=== PATIENT | female | born 1990 | race African-American/Black ===

== ENCOUNTER 2021-06-03 19:06 | Inpatient (IN) ==
[2021-06-03] MEDS ORDERED: HYDROmorphone 1 MG/1 ML SYRINGE IV STA ×2 (20:19→23:36)
[2021-06-03] MEDS ORDERED: SODIUM CHLORIDE 0.9% 1,000 ML IV STA ×2 (20:19→21:07)
[2021-06-03] MEDS ORDERED: ONDANSETRON 4 MG/2 ML VIAL IV STA (20:19)
[2021-06-03 20:44] LABS: Basophils % 0.2 % (0.0-0.8); Hematocrit 32.2 VOL% (35.7-47.0); Hemoglobin 9.7 GM/DL (12.0-16.0); Immature Granulocytes % 0.3 %; Immature Granulocytes Absolute 0.03 #; Lymphocytes # 0.4 10*3/uL (1.4-4.0); Lymphocytes % 3.8 % (21.3-54.2); Mean Corpuscular HGB Conc 30.1 GM/DL (32-36); Mean Corpuscular Volume 71.4 FL (87-102); Monocytes % 4.6 % (1.7-12.7); Neutrophils % 91.1 % (38.7-73.9); Platelet Count 288 T/CUMM (130-400); Red Blood Count 4.51 MC/CUMM (3.8-5.5); Red Cell Distribution Width 19.1 % (9.3-17.3); White Blood Count 9.6 T/CUMM (4-12)
[2021-06-03 21:02] LABS: Alanine Aminotransferase 16 U/L (13-56); Albumin 2.6 G/DL (3.4-5.0); Alkaline Phosphatase 81 U/L (45-117); Amylase 24 U/L (25-115); Aspartate Amino Transferase 13 U/L (0-37); Blood Urea Nitrogen 12 MG/DL (7-18); Calcium 8.6 MG/DL (8.5-10.1); Carbon Dioxide 25 MMOL/L (21-32); Estimated Glom Filtration Rate 57 ML/MIN; Glucose 150 MG/DL (74-106); Osmolality,Calculated 268.4 MOS/KG (273-304); Potassium 2.6 MMOL/L (3.5-5.1); Sodium 133 MMOL/L (136-145)
[2021-06-03] MEDS ORDERED: MAGNESIUM SULF RIDER 2 GM/50 ML PREMIX IV STA (21:06)
[2021-06-03] MEDS ORDERED: POTASSIUM CHLORIDE RIDER 20 MEQ/100 ML PREMIX IV STA (21:07)
[2021-06-03 21:37] LABS: Band Neutrophils 1 % (0-10); Lymphocytes 6 % (20-55); Segmented Neutrophils 87 % (50-85); Total Cells Counted 100
[2021-06-03 21:38] LABS: Platelet Estimate Adequate
[2021-06-03 21:39] LABS: Anisocytosis 1+; Hypochromia 2+; Microcytosis 1+
[2021-06-03] MEDS: POTASSIUM CHLORIDE RIDER 10 MEQ/100 ML PREMIX IV SCH ×2 (22:03→23:52)
[2021-06-03] MEDS ORDERED: PIPERACILLIN/TAZOBACTAM 3,375 MG in SODIUM CHLORIDE 0.9% 100 ML IV STA (23:54)
[2021-06-03] MEDS ORDERED: DOXYCYCLINE HYCLATE INJ 100 MG in SODIUM CHLORIDE 0.9% 100 ML IV STA (23:54)
[2021-06-04] MEDS ORDERED: DEXTROSE 10% 250 ML BAG IV PRN (00:12)
[2021-06-04] MEDS ORDERED: NICOTINE 21 MG/24 HR PATCH TRANSDERM PRN (00:12)
[2021-06-04] MEDS ORDERED: hydrALAZINE 20 MG/1 ML VIAL IV PRN (00:12)
[2021-06-04] MEDS ORDERED: guaiFENesin/DM ER 600-30 MG TABLET PO PRN (00:12)
[2021-06-04] MEDS ORDERED: PROMETHAZINE 25 MG/1 ML VIAL IM PRN (00:12)
[2021-06-04] MEDS ORDERED: GLUCAGON 1 MG VIAL IM PRN (00:12)
[2021-06-04] MEDS ORDERED: PIPERACILLIN/TAZOBACTAM 3,375 MG VIAL IV ONE (00:21)
[2021-06-04] MEDS: SODIUM CHLORIDE 0.9% 1,000 ML IV SCH ×3 (02:00→08:41)
[2021-06-04] MEDS ORDERED: metroNIDAZOLE INJ 500 MG/100 ML PREMIX IV SCH (03:00)
[2021-06-04] MEDS: ONDANSETRON 4 MG/2 ML VIAL IV PRN ×4 (03:20→23:01)
[2021-06-04] MEDS: MORPHINE 2 MG/1 ML SYRINGE IV PRN ×4 (03:24→22:56)
[2021-06-04] MEDS ORDERED: cefTRIAXone 1,000 MG in SODIUM CHLORIDE 0.9% 100 ML IV SCH (04:00)
[2021-06-04 05:01] LABS: Basophils % 0.2 % (0.0-0.8); Hematocrit 26.1 VOL% (35.7-47.0); Immature Granulocytes % 0.3 %; Immature Granulocytes Absolute 0.04 #; Lymphocytes # 0.4 10*3/uL (1.4-4.0); Lymphocytes % 3.1 % (21.3-54.2); Mean Corpuscular HGB Conc 30.7 GM/DL (32-36); Mean Corpuscular Volume 71.7 FL (87-102); Mean Platelet Volume 11.7 FL (9.6-12.0); Neutrophils % 91.4 % (38.7-73.9); Platelet Count 260 T/CUMM (130-400); Red Blood Count 3.64 MC/CUMM (3.8-5.5); Red Cell Distribution Width 19.2 % (9.3-17.3)
[2021-06-04 05:19] LABS: Calcium 7.3 MG/DL (8.5-10.1); Osmolality,Calculated 276.7 MOS/KG (273-304); Potassium 3.2 MMOL/L (3.5-5.1)
[2021-06-04 05:43] LABS: Mucus,Urine Occasional /LPF (Occasional); RBC,Urine 2 /HPF (0-4); Squamous Epithelial Cell,Urine Occasional /HPF (0-10)
[2021-06-04 05:44] LABS: Bilirubin,Urine Negative (Negative); Blood, Urine Small mg/dL (Negative); Glucose,Urine (UA) Negative (Negative); Ketones,Urine Negative (Negative); Nitrite,Urine Negative (Negative); Protein,Urine 100 mg/dL (Negative); Urine Appearance Clear (Clear); Urine Color Yellow (Yellow); Urine Specific Gravity 1.015 (1.001-1.035); Urine Urobilinogen 0.2 eU/dL (<2.0)
[2021-06-04 06:10] LABS: Anisocytosis 1+; Band Neutrophils 34 % (0-10); Burr Cells Few; Lymphocytes 4 % (20-55); Myelocytes 2 %; Ovalocytes 1+; Platelet Estimate Normal; Segmented Neutrophils 54 % (50-85); Total Cells Counted 100
[2021-06-04 06:11] LABS: Target Cells Few
[2021-06-04] MEDS ORDERED: PIPERACILLIN/TAZOBACTAM 3,375 MG in SODIUM CHLORIDE 0.9% 100 ML IV SCH (08:00)
[2021-06-04] MEDS: PANTOPRAZOLE 40 MG TABLET PO SCH (08:35)
[2021-06-04] MEDS: HEPARIN 5,000 UNIT/1 ML VIAL SUBCUT SCH ×2 (08:41→20:33)
[2021-06-04] MEDS ORDERED: DEXT 5% NACL 0.9% KCL 20 MEQ 20 MEQ/1,000 ML BAG IV SCH (09:00)
[2021-06-04] MEDS: MEROPENEM 500 MG in SODIUM CHLORIDE 0.9% 100 ML IV SCH ×3 (09:44→20:32)
[2021-06-04] MEDS ORDERED: DOXYCYCLINE HYCLATE INJ 100 MG in SODIUM CHLORIDE 0.9% 100 ML IV SCH (12:00)
[2021-06-04] MEDS ORDERED: LACTATED RINGERS 300 ML IV ONE (13:55)
[2021-06-04 14:12] LABS: Basophils % 0.1 % (0.0-0.8); Hematocrit 26.3 VOL% (35.7-47.0); Hemoglobin 7.9 GM/DL (12.0-16.0); Immature Granulocytes % 0.4 %; Immature Granulocytes Absolute 0.05 #; Lymphocytes # 0.4 10*3/uL (1.4-4.0); Lymphocytes % 2.7 % (21.3-54.2); Mean Corpuscular Volume 71.9 FL (87-102); Mean Platelet Volume 11.9 FL (9.6-12.0); Monocytes % 4.4 % (1.7-12.7); Neutrophils % 92.4 % (38.7-73.9); Platelet Count 256 T/CUMM (130-400); Red Blood Count 3.66 MC/CUMM (3.8-5.5); Red Cell Distribution Width 19.3 % (9.3-17.3); White Blood Count 13.5 T/CUMM (4-12)
[2021-06-04] MEDS: LACTATED RINGERS 1,000 ML IV SCH ×2 (14:43→20:51)
[2021-06-04 15:36] LABS: Band Neutrophils 1 % (0-10); Lymphocytes 5 % (20-55); Segmented Neutrophils 91 % (50-85); Total Cells Counted 100
[2021-06-04 15:37] LABS: Burr Cells Slight; Hypochromia 1+; Microcytosis 1+; Ovalocytes Slight
[2021-06-04 15:38] LABS: Platelet Estimate Adequate
[2021-06-04] MEDS: oxyCODONE/ACETAMINOPHEN 5-325 MG TABLET PO PRN (16:06)
[2021-06-04] MEDS: POTASSIUM CHLORIDE 20 MEQ TABLET PO SCH (20:32)
[2021-06-04] MEDS ORDERED: HYDROmorphone 1 MG/1 ML SYRINGE IV STA (23:36)
[2021-06-05] MEDS: MORPHINE 2 MG/1 ML SYRINGE IV PRN (02:45)
[2021-06-05] MEDS ORDERED: ACETAMINOPHEN 325 MG TABLET PO STA (03:30)
[2021-06-05] MEDS: MEROPENEM 500 MG in SODIUM CHLORIDE 0.9% 100 ML IV SCH ×4 (03:30→20:51)
[2021-06-05] MEDS ORDERED: SODIUM CHLORIDE 0.9% 500 ML IV ONE (03:38)
[2021-06-05] MEDS: LACTATED RINGERS 1,000 ML IV SCH ×3 (03:57→17:33)
[2021-06-05 03:58] LABS: Basophils % 0.2 % (0.0-0.8); Hematocrit 27.5 VOL% (35.7-47.0); Hemoglobin 8.1 GM/DL (12.0-16.0); Immature Granulocytes % 0.6 %; Immature Granulocytes Absolute 0.09 #; Lymphocytes # 0.5 10*3/uL (1.4-4.0); Lymphocytes % 3.8 % (21.3-54.2); Mean Corpuscular HGB Conc 29.5 GM/DL (32-36); Mean Corpuscular Volume 71.1 FL (87-102); Mean Platelet Volume 10.7 FL (9.6-12.0); Monocytes % 2.9 % (1.7-12.7); Neutrophils % 92.5 % (38.7-73.9); Platelet Count 260 T/CUMM (130-400); Red Blood Count 3.87 MC/CUMM (3.8-5.5); Red Cell Distribution Width 19.7 % (9.3-17.3); White Blood Count 13.9 T/CUMM (4-12)
[2021-06-05 04:19] LABS: Calcium 8.1 MG/DL (8.5-10.1); Potassium 3.4 MMOL/L (3.5-5.1)
[2021-06-05 04:27] LABS: Albumin 1.9 G/DL (3.4-5.0); Bilirubin,Total 0.5 MG/DL (0.20-1.00); Calcium 8.2 MG/DL (8.5-10.1); Potassium 3.4 MMOL/L (3.5-5.1); Total Protein 6.4 G/DL (6.4-8.2)
[2021-06-05 04:28] LABS: Band Neutrophils 1 % (0-10); Hypochromia 1+; Lymphocytes 2 % (20-55); Microcytosis 1+; Ovalocytes Slight; Platelet Estimate Adequate; Segmented Neutrophils 94 % (50-85); Total Cells Counted 100
[2021-06-05] MEDS: oxyCODONE/ACETAMINOPHEN 5-325 MG TABLET PO PRN ×3 (05:00→23:09)
[2021-06-05] MEDS ORDERED: ROCURONIUM 50 MG/5 ML VIAL IV ONE (06:57)
[2021-06-05] MEDS ORDERED: MIDAZOLAM 2 MG/2 ML VIAL ONE (06:57)
[2021-06-05] MEDS ORDERED: propofoL 200 MG/20 ML VIAL IV ONE (06:57)
[2021-06-05] MEDS ORDERED: DEXAMETHASONE 4 MG/1 ML VIAL ONE (06:57)
[2021-06-05] MEDS ORDERED: SUCCINYLCHOLINE 200 MG/10 ML VIAL ONE (06:57)
[2021-06-05] MEDS ORDERED: SEVOFLURANE 1 UNIT/15 MINUTE INH ONE (06:57)
[2021-06-05] MEDS ORDERED: ETOMIDATE 40 MG/20 ML VIAL IV ONE (06:57)
[2021-06-05] MEDS ORDERED: LIDOCAINE 2% 5 ML VIAL ONE (06:57)
[2021-06-05] MEDS ORDERED: ONDANSETRON 4 MG/2 ML VIAL ONE (06:57)
[2021-06-05] MEDS ORDERED: fentaNYL 100 MCG/2 ML VIAL ONE (06:58)
[2021-06-05] MEDS: HEPARIN 5,000 UNIT/1 ML VIAL SUBCUT SCH (08:51)
[2021-06-05] MEDS: PANTOPRAZOLE 40 MG TABLET PO SCH (08:54)
[2021-06-05] MEDS: POTASSIUM CHLORIDE 20 MEQ TABLET PO SCH ×2 (08:54→20:47)
[2021-06-05 11:52] LABS: Basophils % 0.1 % (0.0-0.8); Eosinophils % 0.1 % (0.00-10.9); Hematocrit 24.4 VOL% (35.7-47.0); Hemoglobin 7.2 GM/DL (12.0-16.0); Immature Granulocytes % 0.9 %; Immature Granulocytes Absolute 0.14 #; Lymphocytes # 0.6 10*3/uL (1.4-4.0); Lymphocytes % 3.9 % (21.3-54.2); Mean Corpuscular HGB Conc 29.5 GM/DL (32-36); Mean Platelet Volume 11.5 FL (9.6-12.0); Monocytes % 4.4 % (1.7-12.7); Neutrophils % 90.6 % (38.7-73.9); Platelet Count 259 T/CUMM (130-400); Red Blood Count 3.39 MC/CUMM (3.8-5.5); Red Cell Distribution Width 19.9 % (9.3-17.3); White Blood Count 15.3 T/CUMM (4-12)
[2021-06-05 12:20] LABS: Anisocytosis 2+; Burr Cells 1+; Eosinophils 1 % (0-10); Hypochromia 1+; Lymphocytes 4 % (20-55); Microcytosis 2+; Segmented Neutrophils 94 % (50-85); Total Cells Counted 100
[2021-06-05 12:21] LABS: Platelet Estimate Normal; Poikilocytosis 1+
[2021-06-05 12:22] LABS: Elliptocytes 1+; Polychromasia Few
[2021-06-05] MEDS: ONDANSETRON 4 MG/2 ML VIAL IV PRN ×2 (17:30→22:26)
[2021-06-05 17:59] LABS: Basophils % 0.1 % (0.0-0.8); Eosinophils % 0.3 % (0.00-10.9); Hematocrit 25.3 VOL% (35.7-47.0); Hemoglobin 7.6 GM/DL (12.0-16.0); Immature Granulocytes % 0.3 %; Immature Granulocytes Absolute 0.04 #; Lymphocytes # 0.6 10*3/uL (1.4-4.0); Lymphocytes % 4.1 % (21.3-54.2); Mean Corpuscular Volume 71.9 FL (87-102); Mean Platelet Volume 11.8 FL (9.6-12.0); Monocytes % 4.2 % (1.7-12.7); Platelet Count 314 T/CUMM (130-400); Red Blood Count 3.52 MC/CUMM (3.8-5.5); Red Cell Distribution Width 19.9 % (9.3-17.3); White Blood Count 13.5 T/CUMM (4-12)
[2021-06-06] LABS: Basophils % 0.1 % (0.0-0.8); Eosinophils % 0.3 % (0.00-10.9); Hematocrit 25.5 VOL% (35.7-47.0); Hemoglobin 7.8 GM/DL (12.0-16.0); Immature Granulocytes % 0.6 %; Immature Granulocytes Absolute 0.08 #; Lymphocytes # 0.6 10*3/uL (1.4-4.0); Lymphocytes % 4.3 % (21.3-54.2); Mean Corpuscular HGB Conc 30.6 GM/DL (32-36); Mean Corpuscular Volume 70.8 FL (87-102); Mean Platelet Volume 11.3 FL (9.6-12.0); Monocytes % 5.2 % (1.7-12.7); Neutrophils % 89.5 % (38.7-73.9); Platelet Count 290 T/CUMM (130-400); Red Cell Distribution Width 19.9 % (9.3-17.3); White Blood Count 14.3 T/CUMM (4-12)
[2021-06-06] MEDS: LACTATED RINGERS 1,000 ML IV SCH ×5 (00:45→21:00)
[2021-06-06 02:39] LABS: Band Neutrophils 3 % (0-10); Hypochromia 3+; Lymphocytes 4 % (20-55); Segmented Neutrophils 89 % (50-85); Total Cells Counted 100
[2021-06-06 02:40] LABS: Burr Cells 2+; Microcytosis 2+; Ovalocytes 2+; Platelet Estimate Normal; Schistocytes 1+
[2021-06-06] MEDS: MEROPENEM 500 MG in SODIUM CHLORIDE 0.9% 100 ML IV SCH ×4 (03:39→21:23)
[2021-06-06 04:31] LABS: Basophils % 0.2 % (0.0-0.8); Eosinophils % 0.2 % (0.00-10.9); Hematocrit 29.8 VOL% (35.7-47.0); Immature Granulocytes % 0.6 %; Immature Granulocytes Absolute 0.11 #; Lymphocytes # 0.9 10*3/uL (1.4-4.0); Lymphocytes % 4.4 % (21.3-54.2); Mean Corpuscular HGB Conc 30.2 GM/DL (32-36); Mean Corpuscular Volume 72.2 FL (87-102); Mean Platelet Volume 11.8 FL (9.6-12.0); Neutrophils % 89.6 % (38.7-73.9); Red Blood Count 4.13 MC/CUMM (3.8-5.5); Red Cell Distribution Width 19.8 % (9.3-17.3)
[2021-06-06 04:46] LABS: Platelet Count 356 T/CUMM (130-400); White Blood Count 19.5 T/CUMM (4-12)
[2021-06-06 04:53] LABS: Calcium 7.9 MG/DL (8.5-10.1)
[2021-06-06 05:01] LABS: Burr Cells Slight; Eosinophils 2 % (0-10); Hypochromia Slight; Lymphocytes 4 % (20-55); Microcytosis Slight; Ovalocytes Slight; Platelet Estimate Adequate; Segmented Neutrophils 87 % (50-85); Total Cells Counted 100
[2021-06-06 05:51] LABS: Potassium 3.6 MMOL/L (3.5-5.1)
[2021-06-06 05:52] LABS: Osmolality,Calculated 271.8 MOS/KG (273-304)
[2021-06-06] MEDS: PANTOPRAZOLE 40 MG TABLET PO SCH (08:27)
[2021-06-06] MEDS: POTASSIUM CHLORIDE 20 MEQ TABLET PO SCH ×2 (08:27→21:23)
[2021-06-06] MEDS: oxyCODONE/ACETAMINOPHEN 5-325 MG TABLET PO PRN ×2 (08:27→21:23)
[2021-06-06] MEDS: MULTIVITAMIN (BEROCCA) TABLET PO SCH (08:27)
[2021-06-06] MEDS: ONDANSETRON 4 MG/2 ML VIAL IV PRN ×2 (08:28→21:28)
[2021-06-06] MEDS ORDERED: CHOLECALCIFEROL 1,000 UNIT TABLET PO SCH (09:00)
[2021-06-06] MEDS ORDERED: SODIUM CHLORIDE 0.9% 1,000 ML IV PRN (11:32)
[2021-06-06] MEDS: ACETAMINOPHEN 500 MG TABLET PO PRN (18:05)
[2021-06-06 20:24] LABS: Basophils % 0.1 % (0.0-0.8); Eosinophils # 0.1 10*3/uL (0.0-0.87); Eosinophils % 0.5 % (0.00-10.9); Hematocrit 28.3 VOL% (35.7-47.0); Hemoglobin 8.5 GM/DL (12.0-16.0); Immature Granulocytes Absolute 0.15 #; Lymphocytes % 6.3 % (21.3-54.2); Mean Corpuscular Volume 70.6 FL (87-102); Mean Platelet Volume 11.2 FL (9.6-12.0); Monocytes % 7.4 % (1.7-12.7); Neutrophils % 84.7 % (38.7-73.9); Platelet Count 334 T/CUMM (130-400); Red Blood Count 4.01 MC/CUMM (3.8-5.5); Red Cell Distribution Width 19.9 % (9.3-17.3); White Blood Count 15.4 T/CUMM (4-12)
[2021-06-06 20:47] LABS: Band Neutrophils 2 % (0-10); Lymphocytes 8 % (20-55); Segmented Neutrophils 83 % (50-85); Total Cells Counted 100
[2021-06-06 20:48] LABS: Anisocytosis 1+; Elliptocytes Few; Hypochromia 1+
[2021-06-06 20:49] LABS: Burr Cells Few; Platelet Estimate Adequate; Poikilocytosis 1+; Schistocytes Few; Target Cells Few
[2021-06-06] MEDS: MORPHINE 2 MG/1 ML SYRINGE IV PRN (21:23)
[2021-06-07] MEDS: MEROPENEM 500 MG in SODIUM CHLORIDE 0.9% 100 ML IV SCH ×4 (02:12→21:15)
[2021-06-07] MEDS: MORPHINE 2 MG/1 ML SYRINGE IV PRN ×2 (02:18→10:25)
[2021-06-07] MEDS: oxyCODONE/ACETAMINOPHEN 5-325 MG TABLET PO PRN ×4 (02:19→21:38)
[2021-06-07] MEDS: ONDANSETRON 4 MG/2 ML VIAL IV PRN ×2 (02:20→10:28)
[2021-06-07] MEDS: LACTATED RINGERS 1,000 ML IV SCH ×5 (04:00→19:47)
[2021-06-07 04:24] LABS: Basophils % 0.1 % (0.0-0.8); Eosinophils # 0.1 10*3/uL (0.0-0.87); Eosinophils % 0.9 % (0.00-10.9); Hematocrit 25.2 VOL% (35.7-47.0); Hemoglobin 7.7 GM/DL (12.0-16.0); Immature Granulocytes % 1.1 %; Immature Granulocytes Absolute 0.18 #; Lymphocytes % 6.1 % (21.3-54.2); Mean Corpuscular HGB Conc 30.6 GM/DL (32-36); Mean Corpuscular Volume 70.4 FL (87-102); Mean Platelet Volume 11.4 FL (9.6-12.0); Neutrophils % 83.8 % (38.7-73.9); Platelet Count 320 T/CUMM (130-400); Red Blood Count 3.58 MC/CUMM (3.8-5.5); Red Cell Distribution Width 19.9 % (9.3-17.3); White Blood Count 16.4 T/CUMM (4-12)
[2021-06-07 04:43] LABS: Eosinophils 2 % (0-10); Hypochromia 1+; Lymphocytes 12 % (20-55); Microcytosis 1+; Platelet Estimate Adequate; Segmented Neutrophils 83 % (50-85); Total Cells Counted 100
[2021-06-07 04:44] LABS: Ovalocytes Slight
[2021-06-07 04:54] LABS: Calcium 7.7 MG/DL (8.5-10.1); Osmolality,Calculated 273.5 MOS/KG (273-304); Potassium 3.3 MMOL/L (3.5-5.1)
[2021-06-07 08:54] LABS: INR 1.1; PT Patient Result 12.6 SECS (10.5-12.0)
[2021-06-07] MEDS ORDERED: DIAZEPAM 5 MG TABLET PO ONE (14:30)
[2021-06-07] MEDS: MULTIVITAMIN (BEROCCA) TABLET PO SCH (14:52)
[2021-06-07] MEDS: CHOLECALCIFEROL 5,000 UNIT TABLET PO SCH (14:53)
[2021-06-07] MEDS: PANTOPRAZOLE 40 MG TABLET PO SCH (14:53)
[2021-06-07] MEDS: POTASSIUM CHLORIDE 20 MEQ TABLET PO SCH ×2 (14:53→21:08)
[2021-06-07] MEDS ORDERED: MIDAZOLAM 2 MG/2 ML VIAL IV ONE (15:00)
[2021-06-07] MEDS ORDERED: fentaNYL 100 MCG/2 ML VIAL IV ONE (15:00)
[2021-06-07] MEDS: SODIUM CHLORIDE 0.45% 1,000 ML IV SCH (16:08)
[2021-06-07 16:58] LABS: Hematocrit 30.3 VOL% (35.7-47.0); Hemoglobin 9.3 GM/DL (12.0-16.0)
[2021-06-07] MEDS: DOXYCYCLINE HYCLATE INJ 100 MG in SODIUM CHLORIDE 0.9% 100 ML IV SCH (18:21)
[2021-06-07] MEDS: ACETAMINOPHEN 500 MG TABLET PO PRN (21:09)
[2021-06-08] MEDS: oxyCODONE/ACETAMINOPHEN 5-325 MG TABLET PO PRN ×5 (01:17→19:40)
[2021-06-08] MEDS: LACTATED RINGERS 1,000 ML IV SCH ×4 (03:07→22:52)
[2021-06-08] MEDS: DOXYCYCLINE HYCLATE INJ 100 MG in SODIUM CHLORIDE 0.9% 100 ML IV SCH ×2 (03:07→15:44)
[2021-06-08] MEDS: MEROPENEM 500 MG in SODIUM CHLORIDE 0.9% 100 ML IV SCH ×4 (03:07→21:00)
[2021-06-08 04:03] LABS: Basophils % 0.2 % (0.0-0.8); Eosinophils # 0.3 10*3/uL (0.0-0.87); Eosinophils % 1.7 % (0.00-10.9); Hematocrit 27.7 VOL% (35.7-47.0); Hemoglobin 8.4 GM/DL (12.0-16.0); Immature Granulocytes % 1.7 %; Immature Granulocytes Absolute 0.33 #; Lymphocytes # 1.3 10*3/uL (1.4-4.0); Lymphocytes % 6.9 % (21.3-54.2); Mean Corpuscular HGB Conc 30.3 GM/DL (32-36); Mean Corpuscular Volume 73.5 FL (87-102); Monocytes % 8.6 % (1.7-12.7); Neutrophils % 80.9 % (38.7-73.9); Platelet Count 339 T/CUMM (130-400); Red Blood Count 3.77 MC/CUMM (3.8-5.5); Red Cell Distribution Width 21.3 % (9.3-17.3); White Blood Count 19.5 T/CUMM (4-12)
[2021-06-08 04:30] LABS: Calcium 7.6 MG/DL (8.5-10.1); Hypochromia 1+; Lymphocytes 7 % (20-55); Microcytosis 1+; Osmolality,Calculated 275.4 MOS/KG (273-304); Platelet Estimate Adequate; Potassium 3.7 MMOL/L (3.5-5.1); Segmented Neutrophils 84 % (50-85); Total Cells Counted 100
[2021-06-08] MEDS: MULTIVITAMIN (BEROCCA) TABLET PO SCH (08:17)
[2021-06-08] MEDS: CHOLECALCIFEROL 5,000 UNIT TABLET PO SCH (08:17)
[2021-06-08] MEDS: POTASSIUM CHLORIDE 20 MEQ TABLET PO SCH ×2 (08:17→22:00)
[2021-06-08] MEDS: PANTOPRAZOLE 40 MG TABLET PO SCH (08:17)
[2021-06-08 10:33] LABS: Basophils % 0.1 % (0.0-0.8); Eosinophils # 0.3 10*3/uL (0.0-0.87); Eosinophils % 1.6 % (0.00-10.9); Hematocrit 28.8 VOL% (35.7-47.0); Hemoglobin 8.8 GM/DL (12.0-16.0); Immature Granulocytes % 1.9 %; Immature Granulocytes Absolute 0.39 #; Lymphocytes # 1.1 10*3/uL (1.4-4.0); Lymphocytes % 5.4 % (21.3-54.2); Mean Corpuscular HGB Conc 30.6 GM/DL (32-36); Mean Corpuscular Volume 73.3 FL (87-102); Mean Platelet Volume 11.3 FL (9.6-12.0); Monocytes % 6.7 % (1.7-12.7); Neutrophils % 84.3 % (38.7-73.9); Platelet Count 384 T/CUMM (130-400); Red Blood Count 3.93 MC/CUMM (3.8-5.5); Red Cell Distribution Width 21.2 % (9.3-17.3); White Blood Count 20.1 T/CUMM (4-12)
[2021-06-08 10:50] LABS: Eosinophils 3 % (0-10); Hypochromia 1+; Lymphocytes 3 % (20-55); Microcytosis 1+; Platelet Estimate Adequate; Segmented Neutrophils 91 % (50-85); Total Cells Counted 100
[2021-06-08] MEDS: SODIUM CHLORIDE 0.45% 1,000 ML IV SCH (15:44)
[2021-06-08] MEDS: ACETAMINOPHEN 500 MG TABLET PO PRN (19:37)
[2021-06-08] MEDS ORDERED: metroNIDAZOLE INJ 500 MG/100 ML PREMIX IV SCH (21:00)
[2021-06-08] MEDS: CLINDAMYCIN INJ 900 MG/50 ML PREMIX IV SCH (22:00)
[2021-06-09] MEDS: ONDANSETRON 4 MG/2 ML VIAL IV PRN ×2 (02:17→13:24)
[2021-06-09] MEDS: LACTATED RINGERS 1,000 ML IV SCH ×3 (02:39→16:41)
[2021-06-09] MEDS: MEROPENEM 500 MG in SODIUM CHLORIDE 0.9% 100 ML IV SCH ×4 (02:40→20:19)
[2021-06-09] MEDS: DOXYCYCLINE HYCLATE INJ 100 MG in SODIUM CHLORIDE 0.9% 100 ML IV SCH ×2 (04:00→16:37)
[2021-06-09 04:40] LABS: Basophils % 0.2 % (0.0-0.8); Eosinophils # 0.3 10*3/uL (0.0-0.87); Eosinophils % 1.2 % (0.00-10.9); Hematocrit 27.4 VOL% (35.7-47.0); Hemoglobin 8.4 GM/DL (12.0-16.0); Immature Granulocytes % 2.8 %; Immature Granulocytes Absolute 0.65 #; Lymphocytes # 1.2 10*3/uL (1.4-4.0); Lymphocytes % 5.2 % (21.3-54.2); Mean Corpuscular HGB Conc 30.7 GM/DL (32-36); Mean Corpuscular Volume 73.5 FL (87-102); Mean Platelet Volume 11.5 FL (9.6-12.0); Monocytes % 5.8 % (1.7-12.7); NRBC # 0.02 10*3/uL; Neutrophils % 84.8 % (38.7-73.9); Platelet Count 453 T/CUMM (130-400); Red Blood Count 3.73 MC/CUMM (3.8-5.5); Red Cell Distribution Width 21.8 % (9.3-17.3); White Blood Count 23.6 T/CUMM (4-12)
[2021-06-09] MEDS: ACETAMINOPHEN 500 MG TABLET PO PRN (04:47)
[2021-06-09] MEDS: oxyCODONE/ACETAMINOPHEN 5-325 MG TABLET PO PRN (04:50)
[2021-06-09 04:54] LABS: Calcium 7.8 MG/DL (8.5-10.1)
[2021-06-09 04:56] LABS: Potassium 3.7 MMOL/L (3.5-5.1)
[2021-06-09 05:03] LABS: Hypochromia 1+; Lymphocytes 3 % (20-55); Microcytosis 1+; Platelet Estimate Adequate; Segmented Neutrophils 93 % (50-85); Total Cells Counted 100
[2021-06-09 05:21] LABS: Osmolality,Calculated 274.4 MOS/KG (273-304)
[2021-06-09] MEDS: CLINDAMYCIN INJ 900 MG/50 ML PREMIX IV SCH ×3 (06:00→21:50)
[2021-06-09] MEDS ORDERED: MAGNESIUM SULF RIDER 2 GM/50 ML PREMIX IV ONE (07:29)
[2021-06-09] MEDS: PANTOPRAZOLE 40 MG TABLET PO SCH (08:13)
[2021-06-09] MEDS ORDERED: POLYMYXIN B 500,000 UNIT VIAL ONE (08:51)
[2021-06-09] MEDS ORDERED: propofoL 200 MG/20 ML VIAL IV ONE (08:54)
[2021-06-09] MEDS ORDERED: DEXMEDETOMIDINE 200 MCG/2 ML VIAL ONE (08:54)
[2021-06-09] MEDS ORDERED: LIDOCAINE 2% 5 ML VIAL ONE (08:54)
[2021-06-09] MEDS ORDERED: ROCURONIUM 50 MG/5 ML VIAL IV ONE (08:54)
[2021-06-09] MEDS ORDERED: SUCCINYLCHOLINE 200 MG/10 ML VIAL ONE (08:54)
[2021-06-09] MEDS ORDERED: DEXAMETHASONE 4 MG/1 ML VIAL ONE (08:54)
[2021-06-09] MEDS ORDERED: ONDANSETRON 4 MG/2 ML VIAL ONE (08:54)
[2021-06-09] MEDS ORDERED: KETAMINE 500 MG/10 ML VIAL ONE (08:55)
[2021-06-09] MEDS ORDERED: GLYCOPYRROLATE 0.4 MG/2 ML VIAL ONE (09:59)
[2021-06-09] MEDS ORDERED: NEOSTIGMINE 10 MG/10 ML VIAL ONE (09:59)
[2021-06-09] MEDS: POTASSIUM CHLORIDE 20 MEQ TABLET PO SCH ×2 (10:59→20:23)
[2021-06-09] MEDS: MULTIVITAMIN (BEROCCA) TABLET PO SCH (10:59)
[2021-06-09] MEDS: CHOLECALCIFEROL 5,000 UNIT TABLET PO SCH (10:59)
[2021-06-09] MEDS ORDERED: HYDROmorphone 1 MG/1 ML SYRINGE IV PRN ×2 (11:00→11:02)
[2021-06-09] MEDS ORDERED: ONDANSETRON 4 MG/2 ML VIAL IV PRN (11:02)
[2021-06-09] MEDS ORDERED: PROMETHAZINE INJ 25 MG in SODIUM CHLORIDE 0.9% 50 ML IV PRN (11:02)
[2021-06-09] MEDS ORDERED: diphenhydrAMINE 50 MG/1 ML VIAL IV PRN (11:02)
[2021-06-09] MEDS ORDERED: SEVOFLURANE 1 UNIT/15 MINUTE INH ONE (11:04)
[2021-06-09] MEDS: MEPERIDINE 25 MG/1 ML VIAL IV PRN ×2 (11:15→11:30)
[2021-06-09] MEDS: SODIUM CHLORIDE 0.45% 1,000 ML IV SCH (14:10)
[2021-06-09] MEDS: HYDROmorphone 1 MG/1 ML SYRINGE IV PRN ×3 (15:00→21:50)
[2021-06-09] MEDS: KETOROLAC 15 MG/1 ML VIAL IV SCH ×2 (15:09→20:19)
[2021-06-09 16:13] LABS: Basophils # 0.1 10*3/uL (0.0-0.2); Basophils % 0.2 % (0.0-0.8); Hemoglobin 9.3 GM/DL (12.0-16.0); Immature Granulocytes % 2.4 %; Immature Granulocytes Absolute 0.72 #; Lymphocytes # 0.8 10*3/uL (1.4-4.0); Lymphocytes % 2.5 % (21.3-54.2); Mean Corpuscular Volume 72.8 FL (87-102); Mean Platelet Volume 11.5 FL (9.6-12.0); Monocytes % 1.7 % (1.7-12.7); Neutrophils % 93.2 % (38.7-73.9); Platelet Count 547 T/CUMM (130-400); Red Blood Count 4.12 MC/CUMM (3.8-5.5); Red Cell Distribution Width 22.2 % (9.3-17.3)
[2021-06-09 16:46] LABS: Band Neutrophils 3 % (0-10); Lymphocytes 3 % (20-55); Platelet Estimate Increased; Segmented Neutrophils 93 % (50-85); Total Cells Counted 100
[2021-06-09 16:47] LABS: Anisocytosis Slight; Hypochromia Slight; Microcytosis Slight
[2021-06-10] MEDS: HYDROmorphone 1 MG/1 ML SYRINGE IV PRN ×3 (01:40→07:40)
[2021-06-10] MEDS: LACTATED RINGERS 1,000 ML IV SCH ×2 (02:28→05:15)
[2021-06-10] MEDS: MEROPENEM 500 MG in SODIUM CHLORIDE 0.9% 100 ML IV SCH ×4 (02:29→21:12)
[2021-06-10] MEDS: KETOROLAC 15 MG/1 ML VIAL IV SCH ×4 (03:03→21:15)
[2021-06-10] MEDS: DOXYCYCLINE HYCLATE INJ 100 MG in SODIUM CHLORIDE 0.9% 100 ML IV SCH ×2 (04:15→17:22)
[2021-06-10 05:49] LABS: Basophils # 0.1 10*3/uL (0.0-0.2); Basophils % 0.2 % (0.0-0.8); Hematocrit 29.2 VOL% (35.7-47.0); Immature Granulocytes % 2.1 %; Immature Granulocytes Absolute 0.65 #; Lymphocytes # 1.1 10*3/uL (1.4-4.0); Lymphocytes % 3.6 % (21.3-54.2); Mean Corpuscular HGB Conc 30.8 GM/DL (32-36); Mean Corpuscular Volume 73.6 FL (87-102); Mean Platelet Volume 12.3 FL (9.6-12.0); Monocytes % 3.4 % (1.7-12.7); Neutrophils % 90.7 % (38.7-73.9); Platelet Count 476 T/CUMM (130-400); Red Blood Count 3.97 MC/CUMM (3.8-5.5); Red Cell Distribution Width 22.9 % (9.3-17.3); White Blood Count 30.4 T/CUMM (4-12)
[2021-06-10] MEDS: CLINDAMYCIN INJ 900 MG/50 ML PREMIX IV SCH ×3 (06:03→22:45)
[2021-06-10 06:13] LABS: Calcium 7.6 MG/DL (8.5-10.1); Osmolality,Calculated 273.7 MOS/KG (273-304); Potassium 5.6 MMOL/L (3.5-5.1)
[2021-06-10 06:27] LABS: Band Neutrophils 1 % (0-10); Hypochromia 2+; Lymphocytes 7 % (20-55); Segmented Neutrophils 84 % (50-85); Total Cells Counted 100
[2021-06-10 06:28] LABS: Acanthocytes Few; Anisocytosis 1+; Microcytosis 1+; Ovalocytes Slight; Polychromasia Slight
[2021-06-10] MEDS: DEXTROSE 5% NACL 0.45% 1,000 ML IV SCH ×2 (07:39→18:40)
[2021-06-10] MEDS: MULTIVITAMIN (BEROCCA) TABLET PO SCH (09:17)
[2021-06-10] MEDS: CHOLECALCIFEROL 5,000 UNIT TABLET PO SCH (09:17)
[2021-06-10] MEDS ORDERED: SODIUM CHLORIDE 0.9% 300 ML IV ONE (09:54)
[2021-06-10] MEDS: oxyCODONE/ACETAMINOPHEN 5-325 MG TABLET PO PRN ×2 (11:02→14:21)
[2021-06-10] MEDS: DOCUSATE SODIUM 100 MG CAPSULE PO PRN (21:15)
[2021-06-11] MEDS: oxyCODONE/ACETAMINOPHEN 5-325 MG TABLET PO PRN ×2 (00:25→07:40)
[2021-06-11] MEDS: DEXTROSE 5% NACL 0.45% 1,000 ML IV SCH ×4 (00:26→19:42)
[2021-06-11] MEDS: MEROPENEM 500 MG in SODIUM CHLORIDE 0.9% 100 ML IV SCH ×4 (02:36→21:07)
[2021-06-11] MEDS: KETOROLAC 15 MG/1 ML VIAL IV SCH ×4 (02:36→21:07)
[2021-06-11] MEDS: DOXYCYCLINE HYCLATE INJ 100 MG in SODIUM CHLORIDE 0.9% 100 ML IV SCH ×2 (04:20→16:38)
[2021-06-11 04:43] LABS: Basophils % 0.1 % (0.0-0.8); Eosinophils # 0.2 10*3/uL (0.0-0.87); Eosinophils % 1.1 % (0.00-10.9); Hematocrit 25.5 VOL% (35.7-47.0); Immature Granulocytes % 2.1 %; Immature Granulocytes Absolute 0.36 #; Lymphocytes % 11.5 % (21.3-54.2); Mean Corpuscular HGB Conc 31.4 GM/DL (32-36); Mean Platelet Volume 10.7 FL (9.6-12.0); Monocytes % 4.7 % (1.7-12.7); Neutrophils % 80.5 % (38.7-73.9); Platelet Count 616 T/CUMM (130-400); Red Blood Count 3.59 MC/CUMM (3.8-5.5); Red Cell Distribution Width 22.3 % (9.3-17.3); White Blood Count 17.4 T/CUMM (4-12)
[2021-06-11 04:57] LABS: Calcium 7.5 MG/DL (8.5-10.1); Osmolality,Calculated 275.5 MOS/KG (273-304); Potassium 3.5 MMOL/L (3.5-5.1)
[2021-06-11 05:09] LABS: Hypochromia 2+; Microcytosis 1+; Ovalocytes Few; Target Cells Few
[2021-06-11 05:10] LABS: Anisocytosis 1+; Platelet Estimate Increased; Polychromasia Slight
[2021-06-11] MEDS: CLINDAMYCIN INJ 900 MG/50 ML PREMIX IV SCH ×3 (05:48→22:22)
[2021-06-11] MEDS: POTASSIUM CHLORIDE 20 MEQ TABLET PO SCH ×2 (09:16→21:07)
[2021-06-11] MEDS: CHOLECALCIFEROL 5,000 UNIT TABLET PO SCH (09:16)
[2021-06-11] MEDS: DOCUSATE SODIUM 100 MG CAPSULE PO PRN (09:16)
[2021-06-11] MEDS: MULTIVITAMIN (BEROCCA) TABLET PO SCH (09:16)
[2021-06-11] MEDS: ONDANSETRON 4 MG/2 ML VIAL IV PRN (09:17)
[2021-06-11] MEDS ORDERED: DEXTROSE 50% 25 GM/50 ML VIAL IV PRN (13:10)
[2021-06-11] MEDS ORDERED: GLUCAGON 1 MG VIAL IM PRN (13:10)
[2021-06-11] MEDS: AMINO ACIDS/DEXT/LYTES 4.25-5% 2,000 ML IV SCH (16:40)
[2021-06-11] MEDS: HYDROmorphone 1 MG/1 ML SYRINGE IV PRN (19:41)
[2021-06-11] MEDS: ACETAMINOPHEN 500 MG TABLET PO PRN (19:53)
[2021-06-12] MEDS: HYDROmorphone 1 MG/1 ML SYRINGE IV PRN ×4 (00:30→17:00)
[2021-06-12] MEDS: KETOROLAC 15 MG/1 ML VIAL IV SCH ×4 (03:46→20:06)
[2021-06-12] MEDS: MEROPENEM 500 MG in SODIUM CHLORIDE 0.9% 100 ML IV SCH ×4 (03:46→20:15)
[2021-06-12] MEDS: DOXYCYCLINE HYCLATE INJ 100 MG in SODIUM CHLORIDE 0.9% 100 ML IV SCH ×2 (04:39→17:30)
[2021-06-12 05:00] LABS: Basophils % 0.1 % (0.0-0.8); Eosinophils # 0.2 10*3/uL (0.0-0.87); Eosinophils % 1.3 % (0.00-10.9); Hematocrit 24.6 VOL% (35.7-47.0); Hemoglobin 7.6 GM/DL (12.0-16.0); Immature Granulocytes % 1.5 %; Immature Granulocytes Absolute 0.26 #; Lymphocytes # 1.8 10*3/uL (1.4-4.0); Lymphocytes % 9.9 % (21.3-54.2); Mean Corpuscular HGB Conc 30.9 GM/DL (32-36); Mean Platelet Volume 10.5 FL (9.6-12.0); Neutrophils % 82.2 % (38.7-73.9); Platelet Count 681 T/CUMM (130-400); Red Blood Count 3.37 MC/CUMM (3.8-5.5); Red Cell Distribution Width 22.5 % (9.3-17.3); White Blood Count 17.9 T/CUMM (4-12)
[2021-06-12 05:18] LABS: Calcium 7.7 MG/DL (8.5-10.1); Osmolality,Calculated 275.4 MOS/KG (273-304); Potassium 3.7 MMOL/L (3.5-5.1)
[2021-06-12 05:35] LABS: Anisocytosis 1+; Platelet Estimate Increased; Tear Drop Cells Few
[2021-06-12 05:36] LABS: Hypochromia 1+; Macrocytosis Slight; Ovalocytes Few; Polychromasia Slight; Target Cells Few
[2021-06-12] MEDS: CLINDAMYCIN INJ 900 MG/50 ML PREMIX IV SCH ×3 (06:14→21:36)
[2021-06-12] MEDS: oxyCODONE/ACETAMINOPHEN 5-325 MG TABLET PO PRN ×2 (08:48→20:19)
[2021-06-12] MEDS ORDERED: MAGNESIUM HYDROXIDE SUSP 30 ML UDCUP PO PRN (08:57)
[2021-06-12] MEDS: MULTIVITAMIN (BEROCCA) TABLET PO SCH (09:38)
[2021-06-12] MEDS: CHOLECALCIFEROL 5,000 UNIT TABLET PO SCH (09:38)
[2021-06-12] MEDS: POTASSIUM CHLORIDE 20 MEQ TABLET PO SCH ×2 (09:38→20:05)
[2021-06-12] MEDS: METOCLOPRAMIDE 10 MG/10 ML UDCUP PO SCH ×2 (09:38→18:30)
[2021-06-12] MEDS: DEXTROSE 5% NACL 0.45% 1,000 ML IV SCH (13:38)
[2021-06-12] MEDS: AMINO ACIDS/DEXT/LYTES 4.25-5% 2,000 ML IV SCH (18:32)
[2021-06-12] MEDS ORDERED: hydrALAZINE 20 MG/1 ML VIAL IV PRN (21:16)
[2021-06-12] MEDS: amLODIPine 5 MG TABLET PO SCH (21:35)
[2021-06-13] MEDS: HYDROmorphone 1 MG/1 ML SYRINGE IV PRN ×4 (01:23→21:14)
[2021-06-13] MEDS: METOCLOPRAMIDE 10 MG/10 ML UDCUP PO SCH ×3 (01:23→17:11)
[2021-06-13] MEDS: MEROPENEM 500 MG in SODIUM CHLORIDE 0.9% 100 ML IV SCH ×4 (02:24→22:36)
[2021-06-13] MEDS: KETOROLAC 15 MG/1 ML VIAL IV SCH ×4 (03:16→21:15)
[2021-06-13] MEDS: DOXYCYCLINE HYCLATE INJ 100 MG in SODIUM CHLORIDE 0.9% 100 ML IV SCH ×2 (03:20→17:12)
[2021-06-13 04:21] LABS: Basophils % 0.2 % (0.0-0.8); Eosinophils # 0.2 10*3/uL (0.0-0.87); Eosinophils % 1.1 % (0.00-10.9); Hematocrit 23.1 VOL% (35.7-47.0); Hemoglobin 7.1 GM/DL (12.0-16.0); Immature Granulocytes % 1.3 %; Immature Granulocytes Absolute 0.25 #; Lymphocytes # 1.5 10*3/uL (1.4-4.0); Lymphocytes % 7.4 % (21.3-54.2); Mean Corpuscular HGB Conc 30.7 GM/DL (32-36); Mean Corpuscular Volume 73.1 FL (87-102); Mean Platelet Volume 10.8 FL (9.6-12.0); Monocytes % 3.8 % (1.7-12.7); Neutrophils % 86.2 % (38.7-73.9); Platelet Count 726 T/CUMM (130-400); Red Blood Count 3.16 MC/CUMM (3.8-5.5); Red Cell Distribution Width 22.5 % (9.3-17.3)
[2021-06-13 04:36] LABS: Calcium 8.2 MG/DL (8.5-10.1); Osmolality,Calculated 272.1 MOS/KG (273-304); Potassium 4.6 MMOL/L (3.5-5.1)
[2021-06-13 04:58] LABS: Hypochromia 3+; Platelet Estimate Increased
[2021-06-13 04:59] LABS: Elliptocytes Few; Microcytosis 3+; Ovalocytes Few; Poikilocytosis 1+; Polychromasia Slight
[2021-06-13] MEDS: CLINDAMYCIN INJ 900 MG/50 ML PREMIX IV SCH ×2 (05:26→18:56)
[2021-06-13] MEDS: MULTIVITAMIN (BEROCCA) TABLET PO SCH (08:23)
[2021-06-13] MEDS: POTASSIUM CHLORIDE 20 MEQ TABLET PO SCH ×2 (08:23→21:11)
[2021-06-13] MEDS: amLODIPine 5 MG TABLET PO SCH (08:23)
[2021-06-13] MEDS: CHOLECALCIFEROL 5,000 UNIT TABLET PO SCH (08:23)
[2021-06-13] MEDS: oxyCODONE/ACETAMINOPHEN 5-325 MG TABLET PO PRN ×2 (11:00→18:58)
[2021-06-13] MEDS: DEXTROSE 5% NACL 0.45% 1,000 ML IV SCH ×2 (11:34)
[2021-06-13] MEDS: AMINO ACIDS/DEXT/LYTES 4.25-5% 2,000 ML IV SCH (18:32)
[2021-06-13] MEDS: carvediloL 12.5 MG TABLET PO SCH (21:11)
[2021-06-14] MEDS: CLINDAMYCIN INJ 900 MG/50 ML PREMIX IV SCH ×2 (00:08→10:26)
[2021-06-14] MEDS: METOCLOPRAMIDE 10 MG/10 ML UDCUP PO SCH ×3 (00:08→16:35)
[2021-06-14] MEDS: oxyCODONE/ACETAMINOPHEN 5-325 MG TABLET PO PRN (01:38)
[2021-06-14] MEDS: ACETAMINOPHEN 500 MG TABLET PO PRN ×2 (03:43→16:37)
[2021-06-14] MEDS: HYDROmorphone 1 MG/1 ML SYRINGE IV PRN ×4 (03:46→22:31)
[2021-06-14] MEDS: KETOROLAC 15 MG/1 ML VIAL IV SCH ×2 (03:48→09:47)
[2021-06-14] MEDS: DEXTROSE 5% NACL 0.45% 1,000 ML IV SCH ×2 (04:27→19:00)
[2021-06-14] MEDS: DOXYCYCLINE HYCLATE INJ 100 MG in SODIUM CHLORIDE 0.9% 100 ML IV SCH (04:29)
[2021-06-14 05:08] LABS: Basophils % 0.2 % (0.0-0.8); Eosinophils # 0.4 10*3/uL (0.0-0.87); Hematocrit 22.5 VOL% (35.7-47.0); Hemoglobin 6.9 GM/DL (12.0-16.0); Immature Granulocytes % 1.3 %; Immature Granulocytes Absolute 0.23 #; Lymphocytes # 1.2 10*3/uL (1.4-4.0); Lymphocytes % 7.1 % (21.3-54.2); Mean Corpuscular HGB Conc 30.7 GM/DL (32-36); Mean Corpuscular Volume 73.3 FL (87-102); Mean Platelet Volume 10.8 FL (9.6-12.0); Monocytes % 4.8 % (1.7-12.7); Neutrophils % 84.6 % (38.7-73.9); Platelet Count 726 T/CUMM (130-400); Red Blood Count 3.07 MC/CUMM (3.8-5.5); Red Cell Distribution Width 23.1 % (9.3-17.3); White Blood Count 17.6 T/CUMM (4-12)
[2021-06-14 05:23] LABS: Calcium 8.4 MG/DL (8.5-10.1); Osmolality,Calculated 271.7 MOS/KG (273-304)
[2021-06-14] MEDS: MEROPENEM 500 MG in SODIUM CHLORIDE 0.9% 100 ML IV SCH (05:33)
[2021-06-14 05:40] LABS: Hypochromia 2+; Microcytosis 2+
[2021-06-14 05:41] LABS: Ovalocytes Few; Platelet Estimate Increased; Target Cells Few
[2021-06-14 05:42] LABS: Polychromasia Slight
[2021-06-14] MEDS: CHOLECALCIFEROL 5,000 UNIT TABLET PO SCH ×2 (09:47→10:58)
[2021-06-14] MEDS: POTASSIUM CHLORIDE 20 MEQ TABLET PO SCH ×2 (10:58→22:28)
[2021-06-14] MEDS: carvediloL 12.5 MG TABLET PO SCH ×2 (10:58→22:29)
[2021-06-14] MEDS: amLODIPine 5 MG TABLET PO SCH (10:58)
[2021-06-14] MEDS: MULTIVITAMIN (BEROCCA) TABLET PO SCH (10:58)
[2021-06-14] MEDS ORDERED: SODIUM CHLORIDE 0.9% 1,000 ML IV PRN (15:24)
[2021-06-14] MEDS: DOXYCYCLINE HYCLATE 100 MG CAPSULE PO SCH (22:29)
[2021-06-14] MEDS: AMOXICILLIN/CLAV 875 MG TABLET PO SCH (22:29)
[2021-06-15] MEDS: METOCLOPRAMIDE 10 MG/10 ML UDCUP PO SCH ×3 (01:11→16:03)
[2021-06-15] MEDS: HYDROmorphone 1 MG/1 ML SYRINGE IV PRN ×3 (01:18→18:25)
[2021-06-15] MEDS: DEXTROSE 5% NACL 0.45% 1,000 ML IV SCH (03:42)
[2021-06-15] MEDS: oxyCODONE/ACETAMINOPHEN 5-325 MG TABLET PO PRN ×4 (03:45→23:18)
[2021-06-15 05:23] LABS: Hematocrit 27.9 VOL% (35.7-47.0); Hemoglobin 8.7 GM/DL (12.0-16.0)
[2021-06-15 05:25] LABS: Basophils % 0.2 % (0.0-0.8); Eosinophils # 0.2 10*3/uL (0.0-0.87); Eosinophils % 1.2 % (0.00-10.9); Hematocrit 27.3 VOL% (35.7-47.0); Hemoglobin 8.7 GM/DL (12.0-16.0); Immature Granulocytes % 0.9 %; Immature Granulocytes Absolute 0.14 #; Lymphocytes # 1.4 10*3/uL (1.4-4.0); Lymphocytes % 9.2 % (21.3-54.2); Mean Corpuscular HGB Conc 31.9 GM/DL (32-36); Mean Platelet Volume 10.6 FL (9.6-12.0); Monocytes % 5.6 % (1.7-12.7); Neutrophils % 82.9 % (38.7-73.9); Platelet Count 701 T/CUMM (130-400); Red Blood Count 3.69 MC/CUMM (3.8-5.5); Red Cell Distribution Width 21.4 % (9.3-17.3); White Blood Count 15.1 T/CUMM (4-12)
[2021-06-15 05:56] LABS: Calcium 8.6 MG/DL (8.5-10.1); Osmolality,Calculated 269.8 MOS/KG (273-304); Potassium 4.3 MMOL/L (3.5-5.1)
[2021-06-15] MEDS: AMOXICILLIN/CLAV 875 MG TABLET PO SCH ×2 (10:00→23:14)
[2021-06-15] MEDS: POTASSIUM CHLORIDE 20 MEQ TABLET PO SCH ×2 (10:00→23:14)
[2021-06-15] MEDS: carvediloL 12.5 MG TABLET PO SCH ×2 (10:01→23:14)
[2021-06-15] MEDS: DOXYCYCLINE HYCLATE 100 MG CAPSULE PO SCH ×2 (10:01→23:14)
[2021-06-15] MEDS: CHOLECALCIFEROL 5,000 UNIT TABLET PO SCH (10:01)
[2021-06-15] MEDS: amLODIPine 5 MG TABLET PO SCH (10:01)
[2021-06-15] MEDS: MULTIVITAMIN (BEROCCA) TABLET PO SCH (10:02)
[2021-06-15] MEDS: IPRATROPIUM 500 MCG/2.5 ML NEB RESP TX SCH ×2 (14:58→19:45)
[2021-06-15 16:15] LABS: Basophils % 0.2 % (0.0-0.8); Eosinophils # 0.2 10*3/uL (0.0-0.87); Eosinophils % 1.1 % (0.00-10.9); Hematocrit 28.5 VOL% (35.7-47.0); Hemoglobin 8.9 GM/DL (12.0-16.0); Immature Granulocytes % 0.7 %; Immature Granulocytes Absolute 0.12 #; Lymphocytes # 1.2 10*3/uL (1.4-4.0); Mean Corpuscular HGB Conc 31.2 GM/DL (32-36); Mean Corpuscular Volume 73.5 FL (87-102); Mean Platelet Volume 11.1 FL (9.6-12.0); Platelet Count 655 T/CUMM (130-400); Red Blood Count 3.88 MC/CUMM (3.8-5.5); Red Cell Distribution Width 21.9 % (9.3-17.3); White Blood Count 16.9 T/CUMM (4-12)
[2021-06-15] MEDS: ONDANSETRON 4 MG/2 ML VIAL IV PRN (23:51)
[2021-06-16] MEDS: IPRATROPIUM 500 MCG/2.5 ML NEB RESP TX SCH ×4 (00:45→19:55)
[2021-06-16] MEDS: METOCLOPRAMIDE 10 MG/10 ML UDCUP PO SCH ×3 (01:20→16:28)
[2021-06-16] MEDS: HYDROmorphone 1 MG/1 ML SYRINGE IV PRN (04:26)
[2021-06-16 05:37] LABS: Basophils % 0.3 % (0.0-0.8); Eosinophils # 0.1 10*3/uL (0.0-0.87); Hematocrit 28.4 VOL% (35.7-47.0); Hemoglobin 8.9 GM/DL (12.0-16.0); Immature Granulocytes % 0.6 %; Immature Granulocytes Absolute 0.09 #; Lymphocytes # 1.3 10*3/uL (1.4-4.0); Mean Corpuscular HGB Conc 31.3 GM/DL (32-36); Mean Corpuscular Volume 75.1 FL (87-102); Mean Platelet Volume 10.6 FL (9.6-12.0); Neutrophils % 82.1 % (38.7-73.9); Platelet Count 701 T/CUMM (130-400); Red Blood Count 3.78 MC/CUMM (3.8-5.5); Red Cell Distribution Width 21.3 % (9.3-17.3); White Blood Count 14.3 T/CUMM (4-12)
[2021-06-16 05:55] LABS: Calcium 8.7 MG/DL (8.5-10.1); Osmolality,Calculated 271.7 MOS/KG (273-304); Potassium 4.2 MMOL/L (3.5-5.1)
[2021-06-16] MEDS: DOXYCYCLINE HYCLATE 100 MG CAPSULE PO SCH ×2 (09:05→20:38)
[2021-06-16] MEDS: POTASSIUM CHLORIDE 20 MEQ TABLET PO SCH ×2 (09:06→20:38)
[2021-06-16] MEDS: CHOLECALCIFEROL 5,000 UNIT TABLET PO SCH (09:06)
[2021-06-16] MEDS: MULTIVITAMIN (BEROCCA) TABLET PO SCH (09:06)
[2021-06-16] MEDS: amLODIPine 5 MG TABLET PO SCH (09:06)
[2021-06-16] MEDS: carvediloL 12.5 MG TABLET PO SCH ×2 (09:06→20:39)
[2021-06-16] MEDS: AMOXICILLIN/CLAV 875 MG TABLET PO SCH ×2 (09:07→20:38)
[2021-06-16] MEDS: oxyCODONE/ACETAMINOPHEN 5-325 MG TABLET PO PRN ×3 (09:10→20:38)
[2021-06-16] MEDS ORDERED: IBUPROFEN 400 MG TABLET PO PRN (11:22)
[2021-06-17] MEDS: oxyCODONE/ACETAMINOPHEN 5-325 MG TABLET PO PRN (00:31)
[2021-06-17] MEDS: METOCLOPRAMIDE 10 MG/10 ML UDCUP PO SCH ×2 (00:31→09:07)
[2021-06-17] MEDS: IPRATROPIUM 500 MCG/2.5 ML NEB RESP TX SCH ×2 (00:55→07:47)
[2021-06-17 08:31] VITALS: BP 148/92
[2021-06-17] MEDS: DOXYCYCLINE HYCLATE 100 MG CAPSULE PO SCH (09:08)
[2021-06-17] MEDS: AMOXICILLIN/CLAV 875 MG TABLET PO SCH (09:08)
[2021-06-17] MEDS: CHOLECALCIFEROL 5,000 UNIT TABLET PO SCH (09:08)
[2021-06-17] MEDS: MULTIVITAMIN (BEROCCA) TABLET PO SCH (09:08)
[2021-06-17] MEDS: POTASSIUM CHLORIDE 20 MEQ TABLET PO SCH (09:08)
[2021-06-17] MEDS: carvediloL 12.5 MG TABLET PO SCH (09:09)
[2021-06-17] MEDS: amLODIPine 5 MG TABLET PO SCH (09:09)
== END 2021-06-17 11:31 | disposition home or self-care (01) | DRG 982 ==
LOC: N.ED 19:06 → N.CC 06-04 00:12 → SUATTDRO 06-04 00:12 → N.CC 06-04 08:02 → N.5E 06-13 20:56
PROVIDERS: ADMIT Hospitalist; ATTEND Internal Medicine Geriatric Medicine